=== PATIENT | female | born 1990 | race Caucasian/White ===

== ENCOUNTER → 2024-10-29 | Outpatient (CLI) | payer BC ==
--- NOTE | 2024-10-31 15:54 | US ---
EXAMINATION TYPE: US abdomen limited DATE OF EXAM: 10/29/2024 COMPARISON: None CLINICAL INDICATION: Female, 34 years old with history of R10.11 RIGHT UPPER QUADRANT PAIN; Pt states RUQ pain that radiates to right shoulder TECHNIQUE: Grayscale and color Doppler imaging of the right upper quadrant was performed. FINDINGS: EXAM MEASUREMENTS: Liver Length: 15.8 cm Gallbladder Wall: 0.2 cm CBD: 0.3 cm Right Kidney: 10.7 x 4.2 x 4.4 cm Pancreas: Obscured by bowel gas Liver: wnl Gallbladder: wnl Evidence for sonographic Hanks's sign: Yes CBD: wnl Right Kidney: wnl IMPRESSION: The caustic pump operator indicates a positive sonographic Hanks's sign. However, there are no gallstones, anc illary findings of acute cholecystitis, or biliary ductal dilatation. This may reflect referred pain. If further imaging assessment of the gallbladder is desired, HIDA scan could be considered. [facility], , 10/31/2024 3:52 PM
== END | disposition home or self-care (01) ==
LOC: RADUSWWP 08:52
PROVIDERS: ATTEND Family Medicine
DX: R10.11 Right upper quadrant pain (principal)
CPT/HCPCS: 76705